=== PATIENT | male | born 1990 | race Caucasian/White ===

== ENCOUNTER 2021-03-25 07:56 | Day surgery (SDC) | payer OTHER ==
[~2021-03-25] VITALS: Ht 177.8 cm; Wt 125.0 kg
[2021-03-25 08:36] VITALS: BP 153/84
[2021-03-25 10:03] LABS: HEMATOCRIT 46.9 % (39.0-50.0); HEMOGLOBIN 16.2 g/dl (14.0-18.0); IMMATURE GRANULOCYTES 0.2 % (0.0-5.0); MEAN CELL VOLUME 85.9 fL CALC (80.0-100.0); MEAN CORPUSCULAR HGB 29.7 pG CALC (26.0-32.0); MEAN CORPUSCULAR HGB CONC 34.5 g/dL CAL (32.0-36.0); NEUT# 3.8 thou/uL (1.82-7.42); RED BLOOD COUNT 5.46 mill/uL (4.70-6.10); RED CELL DISTRI WIDTH 12.8 % (11.5-15.5)
[2021-03-25 10:19] LABS: ALBUMIN 5.2 g/dL (3.2-5.0); ALKALINE PHOSPHATASE 81 u/l (38-126); ANION GAP 15 (6-22 (CALC)); BILIRUBIN, TOTAL 1.4 mg/dL (0.0-1.4); BUN 11 mg/dL (9-20); BUN/CREATININE RATIO 13 (12-20 (CALC)); CARBON DIOXIDE 29 mmol/l (22-30); CHLORIDE 101 mmol/l (95-108); CREATININE 0.8 mg/dL (0.7-1.3); GFR > 60 ML/MIN (>=60 (CALC)); GFR FOR AFR.AMER. > 60 ML/MIN (>=60 (CALC)); POTASSIUM 3.9 mmol/l (3.5-5.1); SGOT/AST 52 u/l (17-59); SODIUM 142 mmol/l (137-146); TOTAL PROTEIN 9.6 g/dL (6.3-8.2)
[2021-03-25] MEDS ORDERED: CLONIDINE0.1 MG PO (13:43)
[2021-03-25] MEDS ORDERED: NALTREXONE50 MG PO (13:43)
[2021-03-25] MEDS ORDERED: KLONOPIN0.5 MG PO (13:44)
[2021-03-25 16:22] VITALS: BP 123/67
[2021-03-25 22:35] VITALS: BP 124/65
[2021-03-26 05:10] LABS: ALBUMIN 4.3 g/dL (3.2-5.0); ALKALINE PHOSPHATASE 59 u/l (38-126); ANION GAP 12 (6-22 (CALC)); BILIRUBIN, TOTAL 0.9 mg/dL (0.0-1.4); BUN 11 mg/dL (9-20); BUN/CREATININE RATIO 14 (12-20 (CALC)); CARBON DIOXIDE 27 mmol/l (22-30); CHLORIDE 107 mmol/l (95-108); CREATININE 0.8 mg/dL (0.7-1.3); GFR > 60 ML/MIN (>=60 (CALC)); GFR FOR AFR.AMER. > 60 ML/MIN (>=60 (CALC)); MAGNESIUM 2.6 mg/dL (1.6-2.3); SGOT/AST 27 u/l (17-59); SODIUM 142 mmol/l (137-146)
[2021-03-26 05:11] LABS: TOTAL PROTEIN 7.6 g/dL (6.3-8.2)
[2021-03-26 07:42] VITALS: BP 131/64
[2021-03-26 12:01] VITALS: BP 141/70
[2021-03-26 14:59] VITALS: BP 149/63
== END 2021-03-26 17:32 | disposition home or self-care (01) | DRG 897 ==
LOC: ANR 07:56 → MS2 08:04 → ANR 12:25
PROVIDERS: ATTEND Anesthesiology
DX: F11.20 Opioid dependence, uncomplicated (principal)
CPT/HCPCS: J2060; J2354